=== PATIENT | female | born 1925 | race Caucasian/White ===

== ENCOUNTER → 2016-09-16 | Outpatient (CLI) | payer MEDICARE, BC | LOC: OD 14:44 | PROVIDERS: ATTEND Family Medicine | DX: R05 Cough (principal) | CPT/HCPCS: 71020 ==

== ENCOUNTER 2017-04-04 19:58 | Observation (INO) | payer MEDICARE, BC ==
--- NOTE | 2017-04-04 20:14 | ER Document Report ---
ED Fall - General Chief Complaint: Shoulder Injury Stated Complaint: FALL SHOULDER PAIN Time Seen by Provider: 04/04/17 20:10 Mode of Arrival: Medic Information source: Patient, Relative TRAVEL OUTSIDE OF THE [place] IN LAST 30 DAYS: No - HPI Occurred: Just prior to arrival Where: Home Context: Lost balance - WHILE GETTING OUT OF (ELEVATED) BED., Fell from standing Associated symptoms: None. denies: Lost consciousness, Dazed/confused, Difficulty breathing, Became dizzy/fainted Location of injury/pain: Neck, Shoulder Quality of pain: Dull, Sharp - W/ MOVEMENT - Related data Allergies/Adverse Reactions: No Known Allergies Allergy (Verified 10/17/14 14:31) Past Medical History - General Information source: Patient, Relative - Social History Smoking Status: Unknown if Ever Smoked Frequency of alcohol use: None Drug Abuse: None Lives with: Family Family History: Reviewed & Not Pertinent - Past Medical History Cardiac Medical History: Reports: Hx Hypercholesterolemia, Hx Hypertension Denies: Hx Coronary Artery Disease, Hx Heart Attack Pulmonary Medical History: Denies: Hx Asthma, Hx Bronchitis, Hx COPD, Hx Pneumonia, Hx Tuberculosis Neurological Medical History: Denies: Hx Cerebrovascular Accident, Hx Seizures GI Medical History: Reports: Hx Gastroesophageal Reflux Disease Musculoskeltal Medical History: Reports Hx Arthritis Psychiatric Medical History: Reports: Hx Anxiety, Hx Depression Past Surgical History: Reports: Hx Cholecystectomy, Hx Hysterectomy, Hx Orthopedic Surgery - bilateral knees, ORIF RIGHT FEMUR - Immunizations Hx Diphtheria, Pertussis, Tetanus Vaccination: No - unsure Hx Pneumococcal Vaccination: 05/19/13 Review of Systems - Review of Systems Constitutional: No symptoms reported EENT: No symptoms reported Cardiovascular: No symptoms reported Gastrointestinal: No symptoms reported Genitourinary: No symptoms reported Female Genitourinary: Post menopausal Musculoskeletal: See HPI, Joint pain - R. SHOULDER, Neck pain Skin: No symptoms reported Neurological/Psychological: No symptoms reported Physical Exam - Vital signs Vitals: BP 160/76 H 04/04/17 20:08 Interpretation: Hypertensive. No: Tachycardic, Tachypneic - General General appearance: Appears well, Alert In distress: None - HEENT Head: Normocephalic Eyes: Normal Conjunctiva: Normal Ears: Normal Nasal: Normal Mouth/Lips: Normal Mucous membranes: Normal Pharynx: Normal Neck: Normal - Respiratory Respiratory status: No respiratory distress Breath sounds: Normal - Cardiovascular Rhythm: Regular Heart sounds: Normal auscultation Murmur: No - Abdominal Inspection: Normal Distension: No distension - Back Back: Normal - Extremities General upper extremity: Normal inspection General lower extremity: Normal inspection Shoulder: Tender - RIGHT, TENDER OVER HUMERAL HEAD AND ACROMION. NO DEFORMITY. - Neurological Neuro grossly intact: Yes Cognition: Normal Orientation: AAOx4 - Psychological Associated symptoms: Normal affect, Normal mood - Skin Skin Temperature: Warm Skin Moisture: Dry Skin Color: Normal Skin Turgor: Elastic Skin irregularity: negative: Erythema, Laceration Course - Vital Signs Vital signs: Temp Pulse Resp BP Pulse Ox 14 160/76 H 97 04/04/17 20:09 04/04/17 20:08 04/04/17 20:09 Discharge - Discharge Clinical Impression: Fall at home Qualifiers: Encounter type: initial encounter Qualified Code(s): W19.XXXA - Unspecified fall, initial encounter; Y92.099 - Unspecified place in other non-institutional residence as the place of occurrence of the external cause; Y92.099 - Unspecified place in other non-institutional residence as the place of occurrence of the external cause Shoulder contusion Qualifiers: Encounter type: initial encounter Laterality: right Qualified Code(s): S40.011A - Contusion of right shoulder, initial encounter Cervical strain, acute Qualifiers: Encounter type: initial encounter Qualified Code(s): S16.1XXA - Strain of muscle, fascia and tendon at neck level, initial encounter Condition: Stable Disposition: HOME, SELF-CARE Instructions: Contusion ([facility]), Neck Injury (Cervical Strain) ([facility]) Additional Instructions: CONTINUE USUAL MEDS. YOU MAY TAKE TYLENOL IF NEEDED FOR PAIN CONTROL. BE EXTRA CAUTIOUS TO AVOID FALLING. FOLLOW UP WITH YOUR PRIMARY CARE PROVIDER OR RETURN TO E.R. IF PROBLEMS. Referrals: JOHN JOHNSON MD [Primary Care Provider] - Follow up as needed
--- NOTE | 2017-04-04 20:46 | RADIOLOGY REPORT (SQ) ---
EXAM DESCRIPTION: SHOULDER RIGHT 2 OR MORE VIEWS COMPLETED DATE/TIME: 04/04/2017 8:32 pm REASON FOR STUDY: FALL / PAIN COMPARISON: None. NUMBER OF VIEWS: Three views. TECHNIQUE: Internal rotation, external rotation, and Y view images acquired of the right shoulder. LIMITATIONS: None. FINDINGS: MINERALIZATION: Normal. BONES: No acute fracture or dislocation. No worrisome bone lesions. JOINTS: No dislocation. VISUALIZED LUNGS AND RIBS: No pneumothorax. No rib fracture. SOFT TISSUES: No radiopaque foreign body. OTHER: Old healed right rib fractures are identified. IMPRESSION: NEGATIVE STUDY OF THE RIGHT SHOULDER. NO RADIOGRAPHIC EVIDENCE OF ACUTE INJURY. TECHNICAL DOCUMENTATION: JOB ID: [id number] [employer]- All Rights Reserved
--- NOTE | 2017-04-04 21:03 | RADIOLOGY REPORT (SQ) ---
EXAM DESCRIPTION: CT CERVICAL SPINE WITHOUT COMPLETED DATE/TIME: 04/04/2017 8:43 pm REASON FOR STUDY: FALL / PAIN COMPARISON: None. TECHNIQUE: Axial images acquired through the cervical spine without intravenous contrast. Images re viewed with lung, soft tissue and bone windows. Reconstructed coronal and sagittal MPR images review ed. Images stored on PACS. All CT scanners at this facility use dose modulation, iterative reconstruction, and/or weight based d osing when appropriate to reduce radiation dose to as low as reasonably achievable (ALARA). [facility]: Dose Right [facility]: CareDose [facility]: Dose Right [facility]: Teradose 4D [facility]: [employer] RADIATION DOSE: Up-to-date CT equipment and radiation dose reduction techniques were employed. CTDIv ol: 15.6 mGy. DLP: 341 mGy-cm. mGy. LIMITATIONS: None. FINDINGS: ALIGNMENT: An exaggerated cervical lordosis is identified. There is grade 1 anterolisthes is of C 6 in relation to C7 MINERALIZATION: Normal. VERTEBRAL BODIES: No fractures or dislocation. DISCS: Multilevel disc space narrowing with osteophytes. FACETS, LATERAL MASSES, POSTERIOR ELEMENTS: Facet arthropathy. No fractures. No dislocation. No ac nataliia findings. HARDWARE: None in the spine. VISUALIZED RIBS: No fractures. LUNG APICES AND SOFT TISSUES: No significant or acute findings. OTHER: No other significant finding. IMPRESSION: CHRONIC DEGENERATIVE CHANGES. NO ACUTE FINDINGS. Other findings as noted above. TECHNICAL DOCUMENTATION: JOB ID: [id number] Quality ID # [id number]: Final reports with documentation of one or more dose reduction techniques (e.g., Au tomated exposure control, adjustment of the mA and/or kV according to patient size, use of iterative reconstruction technique) 2010 [employer]- All Rights Reserved
[2017-04-04] MEDS ORDERED: IBUPROFEN 600 MG TABLET PO ONE (21:56)
--- NOTE | 2017-04-04 22:55 | RADIOLOGY REPORT (SQ) ---
EXAM DESCRIPTION: CT CHEST WITHOUT COMPLETED DATE/TIME: 04/04/2017 10:19 pm REASON FOR STUDY: FALL, R. POSTERIOR RIB INJURY COMPARISON: None. TECHNIQUE: CT scan performed of the chest without intravenous contrast. Images reviewed with lung, soft tissue and bone windows. Reconstructed coronal and sagittal MPR images reviewed. All images st ored on PACS. All CT scanners at this facility use dose modulation, iterative reconstruction, and/or weight based d osing when appropriate to reduce radiation dose to as low as reasonably achievable (ALARA). [facility]: Dose Right [facility]: CareDose [facility]: Dose Right [facility]: Teradose 4D [facility]: [employer] RADIATION DOSE: Up-to-date CT equipment and radiation dose reduction techniques were employed. CTDIv ol: 8.4 mGy. DLP: 328 mGy-cm. mGy. LIMITATIONS: No technical limitations. FINDINGS: LUNGS AND PLEURA: No masses, infiltrates, pneumothorax. No pleural effusions, calcificati ons. Chronic appearing emphysematous changes are identified. There are multiple scattered tiny pulm onary nodules with the largest measuring 4 mm in diameter. Followup recommendations are as noted bel owthe HILAR AND MEDIASTINAL STRUCTURES: No identified masses or abnormal nodes. No obvious aneurysm. HEART AND VASCULAR STRUCTURES: No aneurysm. No pericardial effusion. Coronary artery calcifications are identified. UPPER ABDOMEN: Calcified gallstones are identified. There are either parapelvic cysts involving the left kidney or hydronephrosis Limited exam. THYROID AND OTHER SOFT TISSUES: No masses. No adenopathy. BONES: No obvious right rib fractures are identified. There is approximately 50% compression of the T12 vertebra which is age indeterminate. Clinical correlation is recommended HARDWARE: None in the chest. OTHER: No other significant findings. IMPRESSION: No definite right rib fractures are identified. Approximately 50% compression of the T1 2 vertebra which is age indeterminate. No acute consolidations or pleural effusion. Scattered small pulmonary nodules with followup recommendations as noted below. Other findings as noted above. COMMENT: FLEISCHNER CRITERIA FOR FOLLOW-UP OF PULMONARY NODULES Incidentally detected new nodules in persons 35 or older. HIGH RISK: History of smoking or other known risk factors. <6mm single solid nodule: LOW RISK: no routine followup. HIGH RISK: optional CT 12 mo. TECHNICAL DOCUMENTATION: JOB ID: [id number] Quality ID # [id number]: Final reports with documentation of one or more dose reduction techniques (e.g., Au tomated exposure control, adjustment of the mA and/or kV according to patient size, use of iterative reconstruction technique) 2010 [employer]- All Rights Reserved
--- NOTE | 2017-04-05 00:21 | RADIOLOGY REPORT (SQ) ---
EXAM DESCRIPTION: 1. CT of the pelvis without contrast. 2. CT of the lumbar spine without contrast. CLINICAL HISTORY: TRAUMA, PAIN COMPARISON: None Available. TECHNIQUE: CT of the lumbar spine and pelvis without IV contrast. FINDINGS: CT pelvis: Osteopenia. No acute fracture. The osseous sacrum is intact. The pelvic bones are intact. No abnormalities of the acetabulum or proximal femurs. Pelvic soft tissues demonstrate prior hysterectomy. Scattered diverticula of the colon. No definite abnormalities of the urinary bladder. No free pelvic fluid or lymphadenopathy. Aortoiliac atherosclerosis. CT lumbar spine: Lumbar spine maintains normal alignment. Lumbar vertebral body height maintained. Chronic compression deformity of the T12 vertebral body with approximately 70% loss of vertebral body height. No acute fracture or subluxation identified. Degenerative change: L1/2: Intervertebral disc height preserved. Mild broad-based disc bulge. Bilateral facet arthropathy. No significant central canal nor neural foraminal narrowing. L2/3: Mild loss of intervertebral disc height with vacuum disc phenomenon. Ligament flavum hypertrophy. Mild broad-based disc bulge. Bilateral facet arthropathy. No significant central canal nor neural foraminal narrowing. L3/4: Inner vertebral disc height preserved. Ligament flavum hypertrophy hypertrophy. Mild broad-based disc bulge. Bilateral facet arthropathy. No significant central canal nor neural foraminal narrowing. L4/5: Mild loss of disc height. Minimal anterior spondylolisthesis of 3 mm is likely degenerative. Facet arthropathy and ligamentum flavum hypertrophy. Mild broad-based posterior disc protrusion. No central canal or neural foraminal narrowing. L5/S1: Severe loss of intervertebral disc height with endplate spondylosis and facet arthropathy. Ligament flavum hypertrophy. Mild broad-based posterior disc bulge. No central canal narrowing. Minimal osseous neural foraminal narrowing. Abdominal soft tissues demonstrate aortoiliac atherosclerosis with bilateral peripelvic cysts in the kidneys. Diverticulosis of colon. DLP: 605.27 mGy-cm IMPRESSION: 1. No acute fracture of the pelvis identified. 2. No acute fracture of the lumbar spine identified by plain film criteria. 3. Remote compression fracture of T12. 4. Mild to moderate degenerative change throughout the lumbar spine. This exam was performed according to our departmental dose-optimization program, which includes automated exposure control, adjustment of the mA and/or kV according to patient size and/or use of iterative reconstruction technique.
[2017-04-05] MEDS: OXYCODONE-ACETAMINOPHEN 5-325 MG TABLET PO PRN ×4 (04:56→22:38)
[2017-04-05] MEDS ORDERED: ACETAMINOPHEN 325 MG TABLET PO PRN (07:06)
--- NOTE | 2017-04-05 08:53 | PDOC H&P ---
History of Present Illness Admission Date/PCP: 04/05/17 01:35 JOHN JOHNSON MD Patient complains of: Fall and a contusion injury History of Present Illness: CARMEN STERLING is a 89 year old female This 89-year-old female with a significant history of the osteoarthritis and osteoporosis and a history of the hypertension's came to the emergency department because of the fall 2 at home According to the patient and daughter patients fell from the bed and hit her Back in the hip area and patient was significant contusions on both area Patient's denied any head injury denied any headache denied any loss of consciousness Patient's denied any chest pain denied any dizziness no short of breath Patient initial all skeletal workup is all negative and able to the department including the CT C-spine L spine and a CT of the pelvic and CT chest was all negative for any acute trauma Patient complaining some lower abdominal pain most likely coming from the hip Patient otherwise alert awake oriented 3 according to the patient when she is on the bed she Denied any pain but patients move the patient started complaining of her hip and the back pain Patient have a history of the vertebral compression fracture in the past She is currently living with her daughter and the daughter is in the bedside Past Medical History Cardiac Medical History: Reports: Hyperlipidema, Hypertension Denies: Coronary Artery Disease, Myocardial Infarction Pulmonary Medical History: Denies: Asthma, Bronchitis, Chronic Obstructive Pulmonary Disease (COPD), Pneumonia, Tuberculosis Neurological Medical History: Denies: Seizures GI Medical History: Reports: Gastroesophageal Reflux Disease Musculoskeltal Medical History: Reports: Arthritis Psychiatric Medical History: Reports: Depression Hematology: Reports: Anemia Past Surgical History Past Surgical History: Reports: Cholecystectomy, Hysterectomy, Orthopedic Surgery - bilateral knees, ORIF RIGHT FEMUR Social History Lives with: Family Smoking Status: Never Smoker Frequency of Alcohol Use: None Hx Recreational Drug Use: No Hx Prescription Drug Abuse: No Family History Family History: Reviewed & Not Pertinent, Arthritis Parental Family History Reviewed: Yes Children Family History Reviewed: Yes Sibling(s) Family History Reviewed.: Yes Medication/Allergy Home Medications: Docusate Sodium [Doc-Q-Lace] 100 mg PO DAILY 10/17/14 Valsartan 160 mg PO DAILY 10/17/14 Meloxicam [Meloxicam] 1 tab PO DAILY 04/05/17 Allergies/Adverse Reactions: No Known Allergies Allergy (Verified 10/17/14 14:31) Review of Systems Constitutional: PRESENT: weakness. ABSENT: chills, fever(s), headache(s), weight gain, weight loss Eyes: ABSENT: visual disturbances Ears: ABSENT: hearing changes Cardiovascular: ABSENT: chest pain, dyspnea on exertion, edema, orthropnea, palpitations Respiratory: ABSENT: cough, hemoptysis Gastrointestinal: ABSENT: abdominal pain, constipation, diarrhea, hematemesis, hematochezia, nausea, vomiting Genitourinary: ABSENT: dysuria, hematuria Musculoskeletal: PRESENT: back pain, muscle weakness. ABSENT: joint swelling Integumentary: ABSENT: rash, wounds Neurological: ABSENT: abnormal gait, abnormal speech, confusion, dizziness, focal weakness, syncope Psychiatric: PRESENT: depression. ABSENT: anxiety, homidical ideation, suicidal ideation Endocrine: ABSENT: cold intolerance, heat intolerance, menstrual abnormalities, polydipsia, polyuria Hematologic/Lymphatic: ABSENT: easy bleeding, easy bruising, lymphadenopathy Physical Exam Vital Signs: Temp Pulse Resp BP Pulse Ox 97.8 F 82 16 155/84 H 99 04/05/17 04:36 04/05/17 04:36 04/05/17 04:36 04/05/17 04:36 04/05/17 04:36 Intake & Output 04/04/17 04/05/17 04/06/17 06:59 06:59 06:59 Intake Total 240 Output Total 300 Balance -60 Weight 62.732 kg General appearance: PRESENT: no acute distress, well-developed, well-nourished Head exam: PRESENT: atraumatic, normocephalic Eye exam: PRESENT: conjunctiva pink, EOMI, PERRLA. ABSENT: scleral icterus Ear exam: PRESENT: normal external ear exam Mouth exam: PRESENT: moist, tongue midline Neck exam: PRESENT: full ROM. ABSENT: carotid bruit, JVD, lymphadenopathy, thyromegaly Respiratory exam: PRESENT: clear to auscultation tamela Cardiovascular exam: PRESENT: RRR. ABSENT: diastolic murmur, rubs, systolic murmur Pulses: PRESENT: normal dorsalis pedis pul, +2 pedal pulses bilateral Vascular exam: PRESENT: normal capillary refill GI/Abdominal exam: PRESENT: normal bowel sounds, soft. ABSENT: distended, guarding, mass, organolmegaly, rebound, tenderness Rectal exam: PRESENT: deferred Extremities exam: ABSENT: full ROM, left AKA, right AKA, left BKA, right BKA, calf tenderness, joint swelling, pedal edema, tenderness, other Musculoskeletal exam: PRESENT: ambulatory Neurological exam: PRESENT: alert, awake, oriented to person, oriented to place , oriented to time, oriented to situation, CN II-XII grossly intact. ABSENT: motor sensory deficit Psychiatric exam: PRESENT: appropriate affect, normal mood. ABSENT: homicidal ideation, suicidal ideation Skin exam: PRESENT: dry, intact, warm. ABSENT: cyanosis, rash Additional comments: Patient have a big bruise on the left hip area and a bruise in the back Results Impressions: Cervical Spine CT 04/04/17 20:10 IMPRESSION: CHRONIC DEGENERATIVE CHANGES. NO ACUTE FINDINGS. Other findings as noted above. Shoulder X-Ray 04/04/17 20:10 IMPRESSION: NEGATIVE STUDY OF THE RIGHT SHOULDER. NO RADIOGRAPHIC EVIDENCE OF ACUTE INJURY. Chest CT 04/04/17 21:51 IMPRESSION: No definite right rib fractures are identified. Approximately 50% compression of the T12 vertebra which is age indeterminate. No acute consolidations or pleural effusion. Scattered small pulmonary nodules with followup recommendations as noted below. Other findings as noted above. Lumbar Spine CT 04/04/17 23:13 IMPRESSION: 1. No acute fracture of the pelvis identified. 2. No acute fracture of the lumbar spine identified by plain film criteria. 3. Remote compression fracture of T12. 4. Mild to moderate degenerative change throughout the lumbar spine. This exam was performed according to our departmental dose-optimization program, which includes automated exposure control, adjustment of the mA and/or kV according to patient size and/or use of iterative reconstruction technique. Pelvis CT 04/04/17 23:13 IMPRESSION: 1. No acute fracture of the pelvis identified. 2. No acute fracture of the lumbar spine identified by plain film criteria. 3. Remote compression fracture of T12. 4. Mild to moderate degenerative change throughout the lumbar spine. This exam was performed according to our departmental dose-optimization program, which includes automated exposure control, adjustment of the mA and/or kV according to patient size and/or use of iterative reconstruction technique. Assessment & Plan - Diagnosis (1) Fall at home Qualifiers: Encounter type: initial encounter Qualified Code(s): W19.XXXA - Unspecified fall, initial encounter; Y92.099 - Unspecified place in other non- institutional residence as the place of occurrence of the external cause; Y92.099 - Unspecified place in other non-institutional residence as the place of occurrence of the external cause Is this a current diagnosis for this admission?: Yes Plan: Patient initial all skeletal survey is negative there is no other neurocardiac signs will get the CT of the head and also get the physical therapy evaluations (2) Lumbosacral strain Qualifiers: Encounter type: initial encounter Qualified Code(s): S39.012A - Strain of muscle, fascia and tendon of lower back, initial encounter Is this a current diagnosis for this admission?: Yes Plan: Continues to pain medications patient already have a history of the vertebral compression fractures consult the orthopedic further evaluations (3) Shoulder contusion Qualifiers: Encounter type: initial encounter Laterality: right Qualified Code(s): S40.011A - Contusion of right shoulder, initial encounter Is this a current diagnosis for this admission?: Yes Plan: Continues the pain medications and physical therapy and ice (4) Hypertension Qualifiers: Hypertension type: unspecified Qualified Code(s): I10 - Essential (primary ) hypertension Is this a current diagnosis for this admission?: Yes Plan: Continues to Diovan (5) Osteoarthritis Qualifiers: Osteoarthritis location: multiple joints Is this a current diagnosis for this admission?: Yes Plan: Continues to as needed Tylenol and Voltaren gel at home - Time Time Spent: 30 to 50 Minutes Medications reviewed and adjusted accordingly: Yes Anticipated discharge: Home Within: within 24 hours, Other - Inpatient Certification Medical Necessity: Need Close Monitoring Due to Risk of Patient Decompensation Post Hospital Care: D/C Atmospheric Physicist Documentation - Plan Summary Plan Summary: Will get the CT of the head get the physical therapy and consult the Ortho and discussed with the patient and the daughter and the bedside very extensively Since prefer to go home do not want to go to the snf or rehab facilities
--- NOTE | 2017-04-05 10:40 | RADIOLOGY REPORT (SQ) ---
EXAM DESCRIPTION: CT HEAD WITHOUT COMPLETED DATE/TIME: 04/05/2017 10:25 am REASON FOR STUDY: fall G44.201 TENSION-TYPE HEADACHE, UNSPECIFIED, INTRACTABLE R33.9 RETENTION OF URINE, UNSPECIFIED COMPARISON: 11/12/2013 TECHNIQUE: Axial images acquired through the brain without intravenous contrast. Images reviewed wi th bone, brain and subdural windows. Images stored on PACS. All CT scanners at this facility use dose modulation, iterative reconstruction, and/or weight based d osing when appropriate to reduce radiation dose to as low as reasonably achievable (ALARA). [facility]: Dose Right [facility]: CareDose [facility]: Dose Right [facility]: Teradose 4D [facility]: [employer] RADIATION DOSE: Up-to-date CT equipment and radiation dose reduction techniques were employed. CTDIv ol: 49.0 mGy. DLP: 881 mGy-cm.mGy. LIMITATIONS: None. FINDINGS: VENTRICLES: Prominent. CEREBRUM: No masses. No hemorrhage. No midline shift. Areas of low density in the white matter mos t likely due to chronic micro-vascular ischemic change. No evidence for acute infarction. CEREBELLUM: No masses. No hemorrhage. No alteration of density. No evidence for acute infarction. EXTRAAXIAL SPACES: Age-related involutional change. No fluid collections. No masses. ORBITS AND GLOBE: No intra- or extraconal masses. Normal contour of globe without masses. CALVARIUM: No fracture. PARANASAL SINUSES: No fluid or mucosal thickening. SOFT TISSUES: No mass or hematoma. OTHER: No other significant finding. IMPRESSION: CHRONIC CHANGES OF ATROPHY AND MICROVASCULAR ISCHEMIA. NO ACUTE PROCESS. EVIDENCE OF ACUTE STROKE: NO. TECHNICAL DOCUMENTATION: JOB ID: [id number] Quality ID # [id number]: Final reports with documentation of one or more dose reduction techniques (e.g., Au tomated exposure control, adjustment of the mA and/or kV according to patient size, use of iterative reconstruction technique) 2010 [employer]- All Rights Reserved
[2017-04-05] MEDS: VALSARTAN 160 MG TABLET PO SCH (10:57)
[2017-04-05] MEDS: DOCUSATE SODIUM 100 MG CAPSULE PO SCH ×2 (10:58→14:30)
[2017-04-05] MEDS: LANSOPRAZOLE 15 MG TAB.RAP.DR PO SCH (18:42)
--- NOTE | 2017-04-05 20:38 | PDOC CONSULTATION ---
History of Present Illness Admission Date/PCP: 04/05/17 01:35 JOHN JOHNSON MD Patient complains of: Pain status post fall History of Present Illness: CARMEN STERLING is a 89-year-old female presents to emergency room after sustaining a fall out of bed onto her right side. Family currently at bedside. According to the family she does ambulate but requires significant assistance. Since her fall her major issue has been difficulty getting up and out of bed along with significant pain and bruising throughout her back abdomen and right lower extremity. Patient states she has history of previous falls and a compression fracture which was treated nonoperatively. Furthermore she also notices increasing pain in her right shoulder which may have been present prior to her fall but has notably increased in discomfort as of recently. She denies numbness or tingling. Pain 12/24. She had does note the pain has improved since her hospitalization with Percocet. Past Medical History Cardiac Medical History: Reports: Hyperlipidema, Hypertension Denies: Coronary Artery Disease, Myocardial Infarction Pulmonary Medical History: Denies: Asthma, Bronchitis, Chronic Obstructive Pulmonary Disease (COPD), Pneumonia, Tuberculosis Neurological Medical History: Denies: Seizures GI Medical History: Reports: Gastroesophageal Reflux Disease Musculoskeltal Medical History: Reports: Arthritis Psychiatric Medical History: Reports: Depression Hematology: Reports: Anemia Past Surgical History Past Surgical History: Reports: Cholecystectomy, Hysterectomy, Orthopedic Surgery - bilateral knees, ORIF RIGHT FEMUR Social History Lives with: Family Smoking Status: Never Smoker Frequency of Alcohol Use: None Hx Recreational Drug Use: No Hx Prescription Drug Abuse: No Family History Family History: Reviewed & Not Pertinent, Arthritis Parental Family History Reviewed: No Children Family History Reviewed: No Sibling(s) Family History Reviewed.: No Medication/Allergy Home Medications: Docusate Sodium [Colace 100 mg Capsule] 100 mg PO DAILY 04/05/17 Meloxicam [Mobic] 7.5 mg PO DAILY 04/05/17 Valsartan [Diovan 160 mg Tablet] 160 mg PO DAILY 04/05/17 Allergies/Adverse Reactions: No Known Allergies Allergy (Verified 10/17/14 14:31) Review of Systems Constitutional: ABSENT: chills, fever(s), headache(s), weight gain, weight loss Eyes: ABSENT: visual disturbances Ears: ABSENT: hearing changes Cardiovascular: ABSENT: chest pain, dyspnea on exertion, edema, orthropnea, palpitations Respiratory: ABSENT: cough, hemoptysis Gastrointestinal: PRESENT: abdominal pain. ABSENT: constipation, diarrhea, hematemesis, hematochezia, nausea, vomiting Genitourinary: ABSENT: dysuria, hematuria Musculoskeletal: PRESENT: as per HPI Integumentary: ABSENT: rash, wounds Neurological: PRESENT: abnormal gait, frequent falls. ABSENT: abnormal speech, confusion, dizziness, focal weakness, syncope Psychiatric: ABSENT: anxiety, depression, homidical ideation, suicidal ideation Endocrine: ABSENT: cold intolerance, heat intolerance, menstrual abnormalities, polydipsia, polyuria Hematologic/Lymphatic: ABSENT: easy bleeding, easy bruising, lymphadenopathy Physical Exam Vital Signs: Temp Pulse Resp BP Pulse Ox 97.9 F 90 18 139/66 H 98 04/05/17 17:18 04/05/17 17:18 04/05/17 17:18 04/05/17 17:18 04/05/17 17:18 Intake & Output 04/04/17 04/05/17 04/06/17 06:59 06:59 06:59 Intake Total 240 Output Total 300 Balance -60 Weight 62.732 kg General appearance: PRESENT: no acute distress, cooperative, hard of hearing, well-developed, well-nourished Head exam: PRESENT: atraumatic, normocephalic Eye exam: PRESENT: conjunctiva pink, EOMI, PERRLA. ABSENT: scleral icterus Ear exam: PRESENT: normal external ear exam Mouth exam: PRESENT: moist, tongue midline Neck exam: PRESENT: full ROM. ABSENT: carotid bruit, JVD, lymphadenopathy, thyromegaly Respiratory exam: PRESENT: unlabored Cardiovascular exam: PRESENT: RRR. ABSENT: diastolic murmur, rubs, systolic murmur Pulses: PRESENT: normal dorsalis pedis pul, +2 pedal pulses bilateral Vascular exam: PRESENT: normal capillary refill GI/Abdominal exam: PRESENT: normal bowel sounds, soft, tenderness. ABSENT: distended, guarding, mass, organolmegaly, rebound Rectal exam: PRESENT: deferred Musculoskeletal exam: PRESENT: other - Notable ecchymosis along the right lower rib cage with tenderness to palpation. No tenderness along the cervical spine or lumbar spine. Patient is full neck range of motion without discomfort. No pain with hip range of motion does have tenderness along the trochanteric region where there is a large area of hematoma and ecchymosis. No limb length inequality negative logroll. Intact plantar flexion/dorsiflexion. No tenderness along the pubic symphysis or pelvis. Neurological exam: PRESENT: alert, awake, oriented to person, oriented to place , oriented to time, oriented to situation, CN II-XII grossly intact. ABSENT: motor sensory deficit Psychiatric exam: PRESENT: appropriate affect, normal mood. ABSENT: homicidal ideation, suicidal ideation Skin exam: PRESENT: dry, intact, warm. ABSENT: cyanosis, rash Results Impressions: Cervical Spine CT 04/04/17 20:10 IMPRESSION: CHRONIC DEGENERATIVE CHANGES. NO ACUTE FINDINGS. Other findings as noted above. Shoulder X-Ray 04/04/17 20:10 IMPRESSION: NEGATIVE STUDY OF THE RIGHT SHOULDER. NO RADIOGRAPHIC EVIDENCE OF ACUTE INJURY. Chest CT 04/04/17 21:51 IMPRESSION: No definite right rib fractures are identified. Approximately 50% compression of the T12 vertebra which is age indeterminate. No acute consolidations or pleural effusion. Scattered small pulmonary nodules with followup recommendations as noted below. Other findings as noted above. Lumbar Spine CT 04/04/17 23:13 IMPRESSION: 1. No acute fracture of the pelvis identified. 2. No acute fracture of the lumbar spine identified by plain film criteria. 3. Remote compression fracture of T12. 4. Mild to moderate degenerative change throughout the lumbar spine. This exam was performed according to our departmental dose-optimization program, which includes automated exposure control, adjustment of the mA and/or kV according to patient size and/or use of iterative reconstruction technique. Pelvis CT 04/04/17 23:13 IMPRESSION: 1. No acute fracture of the pelvis identified. 2. No acute fracture of the lumbar spine identified by plain film criteria. 3. Remote compression fracture of T12. 4. Mild to moderate degenerative change throughout the lumbar spine. This exam was performed according to our departmental dose-optimization program, which includes automated exposure control, adjustment of the mA and/or kV according to patient size and/or use of iterative reconstruction technique. Head CT 04/05/17 00:00 IMPRESSION: CHRONIC CHANGES OF ATROPHY AND MICROVASCULAR ISCHEMIA. NO ACUTE PROCESS. EVIDENCE OF ACUTE STROKE: NO. Status: Image reviewed by me - I have reviewed patient's radiographs. CT scan of lumbar spine/pelvis demonstrates chronic T12 compression fracture no evidence of acute abnormality. Notable degenerative changes throughout the lumbar spine and cervical spine. Radiographs of the right shoulder demonstrate AC joint degenerative changes no evidence of underlying fracture or abnormality. Assessment & Plan - Diagnosis (1) Hematoma of right thigh Qualifiers: Encounter type: initial encounter Qualified Code(s): S70.11XA - Contusion of right thigh, initial encounter Is this a current diagnosis for this admission?: Yes Plan: Patient sustained a fall onto her right side ultimately resulting in rib discomfort and notable hematoma along the trochanteric region. Currently there is no evidence of acute fracture or abnormality. I do feel with time the majority of patient's discomfort will likely improve thus I have recommended continuing physical therapy with weightbearing as tolerated. As for the patient 's shoulder and hip discomfort would consider possible various treatments as an outpatient including injections. In the meantime I have encouraged out of bed and activity with assistance. Patient may follow-up as an outpatient.
[2017-04-06] MEDS: LANSOPRAZOLE 15 MG TAB.RAP.DR PO SCH ×2 (05:15→17:44)
[2017-04-06 06:16] LABS: ABSOLUTE BASOPHILS # (AUTO) 0.1 10^3/uL (0.0-0.2); ABSOLUTE EOSINOPHILS # (AUTO) 0.2 10^3/uL (0.0-0.6); ABSOLUTE LYMPHOCYTES (AUTO) 3.4 10^3/uL (0.5-4.7); ABSOLUTE NEUT (AUTO) 6.2 10^3/uL (1.7-8.2); BASOPHILS % (AUTO) 1.1 % (0-2); EOSINOPHILS % (AUTO) 1.7 % (0-6); HEMATOCRIT 37.8 % (36.0-47.0); HEMOGLOBIN 12.5 g/dL (12.0-15.5); HGB HCT DIFFERENCE -0.3; MEAN CORPUSCULAR HEMOGLOBIN 27.4 pg (27.0-33.4); MEAN CORPUSCULAR HGB CONC 33.1 g/dL (32.0-36.0); MEAN CORPUSCULAR VOLUME 83 fl (80-97); MONOCYTES % (AUTO) 9.4 % (3-13); RED BLOOD COUNT 4.56 10^6/uL (3.72-5.28); RED CELL DISTRIBUTION WIDTH 14.4 % (11.5-14.0); SEGMENTED NEUTROPHILS % (AUTO) 56.8 % (42-78)
[2017-04-06 06:49] LABS: ANION GAP 15 (5-19); BLOOD UREA NITROGEN 29 mg/dL (7-20); CALCIUM 8.8 mg/dL (8.4-10.2); CARBON DIOXIDE 22 mmol/L (22-30); CHLORIDE 102 mmol/L (98-107); CREATININE RESULT 0.87 mg/dL (0.52-1.25); GLUCOSE 104 mg/dL (75-110); POTASSIUM 4.4 mmol/L (3.6-5.0); SODIUM 138.6 mmol/L (137-145)
--- NOTE | 2017-04-06 09:10 | PDOC DISCHARGE SUMMARY ---
General - Admit/Disc Date/PCP Admission Date/Primary Care Provider: 04/05/17 01:35 JOHN JOHNSON MD Discharge Date: 04/06/17 - Discharge Diagnosis (1) Fall at home Is this a current diagnosis for this admission?: Yes Summary: All the skeletal survey and also evaluation all negative for any acute fractures or just contusions Discussed with the patient and the daughters to going to the rehab but patients prefer to go homeDiscussed with the patient and the daughter to strict fall precautions and to use a walker Arrange the home health and physical therapy (2) Lumbosacral strain Is this a current diagnosis for this admission?: Yes Summary: Continues to as needed pain medications (3) Shoulder contusion Is this a current diagnosis for this admission?: Yes Summary: Currently stable follow-up outpatients with the also for possible injections (4) Hypertension Is this a current diagnosis for this admission?: Yes Summary: Continues to Diovan (5) Osteoarthritis Is this a current diagnosis for this admission?: Yes Summary: As needed Tylenol continues to use the Mobic - Additional Information Discharge Diet: Regular Discharge Activity: Activity As Tolerated Home Medications: Docusate Sodium [Colace 100 mg Capsule] 100 mg PO DAILY 04/05/17 Meloxicam [Mobic] 7.5 mg PO DAILY 04/05/17 Valsartan [Diovan 160 mg Tablet] 160 mg PO DAILY 04/05/17 Acetaminophen [Tylenol 325 mg Tablet] 650 mg PO Q4HP PRN #30 tablet 04/06/17 Ciprofloxacin HCl [Cipro 500 mg Tablet] 500 mg PO BID #10 tablet 04/06/17 Oxycodone HCl/Acetaminophen [Percocet 5-325 mg Tablet] 1 tab PO TID PRN #15 tablet 04/06/17 History of Present Illness History of Present Illness: CARMEN STERLING is a 89 year old female This 89-year-old female with a significant history of the osteoarthritis and osteoporosis and a history of the hypertension's came to the emergency department because of the fall 2 at home According to the patient and daughter patients fell from the bed and hit her Back in the hip area and patient was significant contusions on both area Patient's denied any head injury denied any headache denied any loss of consciousness Patient's denied any chest pain denied any dizziness no short of breath Patient initial all skeletal workup is all negative and able to the department including the CT C-spine L spine and a CT of the pelvic and CT chest was all negative for any acute trauma Patient complaining some lower abdominal pain most likely coming from the hip Patient otherwise alert awake oriented 3 according to the patient when she is on the bed she Denied any pain but patients move the patient started complaining of her hip and the back pain Patient have a history of the vertebral compression fracture in the past She is currently living with her daughter and the daughter is in the bedside Hospital Course Hospital Course: This 89-year-old female basically fall at home and brought to the emergency department but the patient have all the CT scan was negative including the CT of the headAnd CT of the C-spine and the CT of the pelvis and CT of the chest There is no sign of any fracture patient have a contusions on the hip and the back and also evaluations done and suggests no need for further interventions and follow-up outpatients Patient's otherwise doing well feeling better with pain medications Patients at this point discharge home because of the patient's wants to go homes and daughters is really taking care of the patient's do not want to go to the rehab Very extensive discussions with the patient and the daughter and the patient is a high risk for the fall string continues to use the walker and a fall precautions and will make arrangement for the home health and physical therapy Physical Exam Vital Signs: Temp Pulse Resp BP Pulse Ox 97.7 F 80 20 124/60 97 04/06/17 00:44 04/06/17 00:44 04/06/17 00:44 04/06/17 00:44 04/06/17 00:44 Intake & Output 04/05/17 04/06/17 04/07/17 06:59 06:59 06:59 Intake Total 240 560 Output Total 300 Balance -60 560 Weight 62.732 kg 60.4 kg General appearance: PRESENT: no acute distress, well-developed, well-nourished Head exam: PRESENT: atraumatic, normocephalic Eye exam: PRESENT: conjunctiva pink, EOMI, PERRLA. ABSENT: scleral icterus Ear exam: PRESENT: normal external ear exam Mouth exam: PRESENT: moist, tongue midline Neck exam: PRESENT: full ROM. ABSENT: carotid bruit, JVD, lymphadenopathy, thyromegaly Respiratory exam: PRESENT: clear to auscultation tamela Cardiovascular exam: PRESENT: RRR. ABSENT: diastolic murmur, rubs, systolic murmur Pulses: PRESENT: normal dorsalis pedis pul, +2 pedal pulses bilateral Vascular exam: PRESENT: normal capillary refill GI/Abdominal exam: PRESENT: normal bowel sounds, soft. ABSENT: distended, guarding, mass, organolmegaly, rebound, tenderness Rectal exam: PRESENT: deferred Extremities exam: ABSENT: pedal edema Musculoskeletal exam: PRESENT: ambulatory Neurological exam: PRESENT: alert, awake, oriented to person, oriented to place , oriented to time, oriented to situation, CN II-XII grossly intact. ABSENT: motor sensory deficit Psychiatric exam: PRESENT: appropriate affect, normal mood. ABSENT: homicidal ideation, suicidal ideation Skin exam: PRESENT: dry, intact, warm. ABSENT: cyanosis, rash Results Laboratory Results: 04/06/17 05:28 04/06/17 05:28 04/06/17 04/06/17 05:28 05:28 WBC 11.0 H RBC 4.56 Hgb 12.5 Hct 37.8 MCV 83 MCH 27.4 MCHC 33.1 RDW 14.4 H Plt Count 185 Seg Neutrophils % 56.8 Lymphocytes % 31.0 Monocytes % 9.4 Eosinophils % 1.7 Basophils % 1.1 Absolute Neutrophils 6.2 Absolute Lymphocytes 3.4 Absolute Monocytes 1.0 Absolute Eosinophils 0.2 Absolute Basophils 0.1 Sodium 138.6 Potassium 4.4 Chloride 102 Carbon Dioxide 22 Anion Gap 15 BUN 29 H Creatinine 0.87 Est GFR ( Amer) > 60 Est GFR (Non-Af Amer) > 60 Glucose 104 Calcium 8.8 Impressions: Cervical Spine CT 04/04/17 20:10 IMPRESSION: CHRONIC DEGENERATIVE CHANGES. NO ACUTE FINDINGS. Other findings as noted above. Shoulder X-Ray 04/04/17 20:10 IMPRESSION: NEGATIVE STUDY OF THE RIGHT SHOULDER. NO RADIOGRAPHIC EVIDENCE OF ACUTE INJURY. Chest CT 04/04/17 21:51 IMPRESSION: No definite right rib fractures are identified. Approximately 50% compression of the T12 vertebra which is age indeterminate. No acute consolidations or pleural effusion. Scattered small pulmonary nodules with followup recommendations as noted below. Other findings as noted above. Lumbar Spine CT 04/04/17 23:13 IMPRESSION: 1. No acute fracture of the pelvis identified. 2. No acute fracture of the lumbar spine identified by plain film criteria. 3. Remote compression fracture of T12. 4. Mild to moderate degenerative change throughout the lumbar spine. This exam was performed according to our departmental dose-optimization program, which includes automated exposure control, adjustment of the mA and/or kV according to patient size and/or use of iterative reconstruction technique. Pelvis CT 04/04/17 23:13 IMPRESSION: 1. No acute fracture of the pelvis identified. 2. No acute fracture of the lumbar spine identified by plain film criteria. 3. Remote compression fracture of T12. 4. Mild to moderate degenerative change throughout the lumbar spine. This exam was performed according to our departmental dose-optimization program, which includes automated exposure control, adjustment of the mA and/or kV according to patient size and/or use of iterative reconstruction technique. Head CT 04/05/17 00:00 IMPRESSION: CHRONIC CHANGES OF ATROPHY AND MICROVASCULAR ISCHEMIA. NO ACUTE PROCESS. EVIDENCE OF ACUTE STROKE: NO. Plan Time Spent: Greater than 30 Minutes - Patient's discharge home with the stable conditions with the home health and physical therapy and fall precautions Discussed with the daughter and the patient about the all the test reports and the CT scan report Follow with Ortho in 1 week and follow with the office in 1 week
[2017-04-06] MEDS: VALSARTAN 160 MG TABLET PO SCH (09:36)
[2017-04-06] MEDS: DOCUSATE SODIUM 100 MG CAPSULE PO SCH ×2 (09:37→17:48)
[2017-04-06] MEDS ORDERED: OXYCODONE-ACETAMINOPHEN 5-325 MG TABLET PO PRN (10:00)
[2017-04-06] MEDS: ENOXAPARIN SODIUM INJ 40 MG/0.4 ML DISP.SYRIN SUBCUT SCH (16:35)
[2017-04-07] MEDS: LANSOPRAZOLE 15 MG TAB.RAP.DR PO SCH (05:53)
[2017-04-07] MEDS: DOCUSATE SODIUM 100 MG CAPSULE PO SCH (09:55)
[2017-04-07] MEDS: VALSARTAN 160 MG TABLET PO SCH (09:56)
[2017-04-07] MEDS: ENOXAPARIN SODIUM INJ 40 MG/0.4 ML DISP.SYRIN SUBCUT SCH (09:57)
[2017-04-07 10:41] VITALS: BP 124/60
[2017-04-07] MEDS ORDERED: CIPROFLOXACIN HCL 500 MG TABLET PO ONE (12:45)
--- NOTE | 2017-04-07 12:45 | PDOC PROGRESS REPORT ---
Subjective Progress Note for:: 04/07/17 Subjective:: Patient is currently doing well Denied any abdominal pain no nausea no vomiting Patient's other than that no other events happened except patient urine culture is positive Physical Exam Vital Signs: Temp Pulse Resp BP Pulse Ox 98.0 F 80 16 124/60 100 04/07/17 10:40 04/07/17 10:40 04/07/17 10:40 04/07/17 10:40 04/07/17 10:40 Intake & Output 04/06/17 04/07/17 04/08/17 06:59 06:59 06:59 Intake Total 560 240 Output Total 300 Balance 560 -60 Weight 60.4 kg 60.4 kg General appearance: PRESENT: no acute distress, well-developed, well-nourished Head exam: PRESENT: atraumatic, normocephalic Eye exam: PRESENT: conjunctiva pink, EOMI, PERRLA. ABSENT: scleral icterus Ear exam: PRESENT: normal external ear exam Mouth exam: PRESENT: moist, tongue midline Neck exam: PRESENT: full ROM. ABSENT: carotid bruit, JVD, lymphadenopathy, thyromegaly Respiratory exam: PRESENT: clear to auscultation tamela Cardiovascular exam: PRESENT: RRR. ABSENT: diastolic murmur, rubs, systolic murmur Pulses: PRESENT: normal dorsalis pedis pul, +2 pedal pulses bilateral Vascular exam: PRESENT: normal capillary refill GI/Abdominal exam: PRESENT: normal bowel sounds, soft. ABSENT: distended, guarding, mass, organolmegaly, rebound, tenderness Rectal exam: PRESENT: deferred Neurological exam: PRESENT: alert, awake, oriented to person, oriented to place , oriented to time, oriented to situation, CN II-XII grossly intact. ABSENT: motor sensory deficit Psychiatric exam: PRESENT: appropriate affect, normal mood. ABSENT: homicidal ideation, suicidal ideation Skin exam: PRESENT: dry, intact, warm. ABSENT: cyanosis, rash Results Laboratory Results: 04/06/17 05:28 04/06/17 05:28 Impressions: Cervical Spine CT 04/04/17 20:10 IMPRESSION: CHRONIC DEGENERATIVE CHANGES. NO ACUTE FINDINGS. Other findings as noted above. Shoulder X-Ray 04/04/17 20:10 IMPRESSION: NEGATIVE STUDY OF THE RIGHT SHOULDER. NO RADIOGRAPHIC EVIDENCE OF ACUTE INJURY. Chest CT 04/04/17 21:51 IMPRESSION: No definite right rib fractures are identified. Approximately 50% compression of the T12 vertebra which is age indeterminate. No acute consolidations or pleural effusion. Scattered small pulmonary nodules with followup recommendations as noted below. Other findings as noted above. Lumbar Spine CT 04/04/17 23:13 IMPRESSION: 1. No acute fracture of the pelvis identified. 2. No acute fracture of the lumbar spine identified by plain film criteria. 3. Remote compression fracture of T12. 4. Mild to moderate degenerative change throughout the lumbar spine. This exam was performed according to our departmental dose-optimization program, which includes automated exposure control, adjustment of the mA and/or kV according to patient size and/or use of iterative reconstruction technique. Pelvis CT 04/04/17 23:13 IMPRESSION: 1. No acute fracture of the pelvis identified. 2. No acute fracture of the lumbar spine identified by plain film criteria. 3. Remote compression fracture of T12. 4. Mild to moderate degenerative change throughout the lumbar spine. This exam was performed according to our departmental dose-optimization program, which includes automated exposure control, adjustment of the mA and/or kV according to patient size and/or use of iterative reconstruction technique. Head CT 04/05/17 00:00 IMPRESSION: CHRONIC CHANGES OF ATROPHY AND MICROVASCULAR ISCHEMIA. NO ACUTE PROCESS. EVIDENCE OF ACUTE STROKE: NO. Assessment & Plan - Diagnosis (1) Fall at home Qualifiers: Encounter type: initial encounter Qualified Code(s): W19.XXXA - Unspecified fall, initial encounter; Y92.099 - Unspecified place in other non- institutional residence as the place of occurrence of the external cause; Y92.099 - Unspecified place in other non-institutional residence as the place of occurrence of the external cause Is this a current diagnosis for this admission?: Yes Plan: Patient initial all skeletal survey is negative there is no other neurocardiac signs will get the CT of the head and also get the physical therapy evaluations (2) Lumbosacral strain Qualifiers: Encounter type: initial encounter Qualified Code(s): S39.012A - Strain of muscle, fascia and tendon of lower back, initial encounter Is this a current diagnosis for this admission?: Yes Plan: Continues to pain medications patient already have a history of the vertebral compression fractures consult the orthopedic further evaluations (3) Shoulder contusion Qualifiers: Encounter type: initial encounter Laterality: right Qualified Code(s): S40.011A - Contusion of right shoulder, initial encounter Is this a current diagnosis for this admission?: Yes Plan: Continues the pain medications and physical therapy and ice (4) Hypertension Qualifiers: Hypertension type: unspecified Qualified Code(s): I10 - Essential (primary ) hypertension Is this a current diagnosis for this admission?: Yes Plan: Continues to Diovan (5) Osteoarthritis Qualifiers: Osteoarthritis location: multiple joints Is this a current diagnosis for this admission?: Yes Plan: Continues to as needed Tylenol and Voltaren gel at home (6) Urinary tract infection Qualifiers: Urinary tract infection type: site unspecified Is this a current diagnosis for this admission?: Yes Plan: Start patient on the Cipro - Time Time Spent with patient: 15-24 minutes Medications reviewed and adjusted accordingly: Yes Anticipated discharge: Home Within: within 24 hours - Inpatient Certification Medical Necessity: Need Close Monitoring Due to Risk of Patient Decompensation Post Hospital Care: D/C Release Specialist Documentation - Plan Summary Plan Summary: Discussed with the patient and the daughter about the patient's current conditions patients prefer to go home and patient's discharge home with the stable conditions with the home health and physical therapy and fall precautions
== END 2017-04-07 14:24 | disposition home or self-care (01) ==
LOC: ER 19:58 → OBSVTOIN 04-05 01:35 → EH 04-05 01:35 → INTOOBSV 04-05 01:35 → 4S 04-05 03:30
PROVIDERS: ADMIT Family Medicine; ATTEND Family Medicine
DX: S39.012A Strain of muscle, fascia and tendon of lower back, initial encounter (principal); S40.011A Contusion of right shoulder, initial encounter; S16.1XXA Strain of muscle, fascia and tendon at neck level, initial encounter; M25.511 Pain in right shoulder; W06.XXXA Fall from bed, initial encounter; S20.211A Contusion of right front wall of thorax, initial encounter; Y92.009 Unspecified place in unspecified non-institutional (private) residence as the place of occurrence of the external cause; S70.00XA Contusion of unspecified hip, initial encounter; I10 Essential (primary) hypertension; M15.9 Polyosteoarthritis, unspecified; N39.0 Urinary tract infection, site not specified; M81.0 Age-related osteoporosis without current pathological fracture; R26.9 Unspecified abnormalities of gait and mobility; S70.11XA Contusion of right thigh, initial encounter; Z79.899 Other long term (current) drug therapy; F32.9 Major depressive disorder, single episode, unspecified; M51.36 Other intervertebral disc degeneration, lumbar region; Z98.890 Other specified postprocedural states; Z90.49 Acquired absence of other specified parts of digestive tract; Z90.710 Acquired absence of both cervix and uterus; Z91.81 History of falling
CPT/HCPCS: 99285; 36415; 87086; 85025; 87088; 80048; 87186; 73030; 70450; 71250; 72125; 72131; 72192; 97530; 97110 ×2; 97116; 97163; G0378 ×3; A9270 ×12; J1650; G8978; G8979